=== PATIENT | female | born 1945 | race Caucasian/White ===

== ENCOUNTER 2022-07-27 03:14 | Emergency (ER) | payer OTHER ==
[~2022-07-27] VITALS: Ht 152.4 cm; Wt 77.1 kg
[2022-07-27] MEDS ORDERED: KETOROLAC TROMETHAMINE INJ 60 MG/2 ML VIAL IM ONE (03:32)
[2022-07-27] MEDS ORDERED: CYCLOBENZAPRINE 10 MG TABLET ONE (03:32)
[2022-07-27] MEDS: CYCLOBENZAPRINE 10 MG TABLET PO ONE (03:35)
[2022-07-27] MEDS: KETOROLAC TROMETHAMINE INJ 60 MG/2 ML VIAL IM ONE (03:35)
--- NOTE | 2022-07-27 03:36 | NUR ---
BIBRA 860 FROM HOME FOR C/O L POSTERIOR THIGH PAIN X FEW HOURS. TOLERATING R/A WELL WITH NO RESP DISTRESS. SAFETY MEASURES IN PLACE.
--- NOTE | 2022-07-27 04:43 | NUR ---
US TECH AT BED SIDE
[2022-07-27] MEDS ORDERED: OXYC-128 PO (04:58)
[2022-07-27] MEDS ORDERED: HYDROCODONE/APAP 5/325MG TABLET ONE (05:04)
--- NOTE | 2022-07-27 05:14 | NUR ---
CALLED [facility] [phone] NUMBER NOT IN SERVICE
--- NOTE | 2022-07-27 05:19 | NUR ---
CALLED [facility] FOR TRANSPORTATION ETA 30-40 MIN
[2022-07-27] MEDS ORDERED: NALO1DIS2 IM (05:24)
[2022-07-27] MEDS: HYDROCODONE/APAP 5/325MG TABLET PO ONE (05:58)
--- NOTE | 2022-07-27 05:59 | NUR ---
[facility] AT PT'S BEDSIDE TO DC PT TO HOME. Patient discharged to home in stable condition. Written and verbal after care instructions given. Patient verbalizes understanding of instruction.
[2022-07-27 06:41] VITALS: BP 161/58
== END 2022-07-27 06:41 | disposition home or self-care (01) ==
LOC: ER 03:16
DX: M79.652 Pain in left thigh (principal)
CPT/HCPCS: 99285; 93971; 96372; J1885